=== PATIENT | female | born 1985 ===

== ENCOUNTER 2016-09-17 19:27 | Emergency (ER) | payer BC ==
--- NOTE | 2016-09-24 07:41 | ER ---
ADMIT: 09/17/2016 RM/LOC: ER [facility] MR#: [id number] [id number] [place], [place] [id number] GAIL GUIDRYANTONIASAMMIE Koki [address] [place] [address] Emergency Room Report SEX: F AGE: 31 : 1985 DATE: 09/17/2016 TIME: 1927 hours. Please refer to my T-sheet for complete H and P. HISTORY OF PRESENT ILLNESS: Briefly, the patient is a 31-year-old who comes in with earache. It has been on and off. It was a couple of months ago but it went away. It is kind of back. She feels a little bit dizzy. She has not been sick otherwise. No fevers or chills, but her ear feels full. PHYSICAL EXAMINATION: VITAL SIGNS: Stable. HEENT: Her left ear has a little bit of retraction. Nose is clear. Throat clear. LUNGS: Clear. EMERGENCY DEPARTMENT COURSE: Uneventful. ASSESSMENT: Left otalgia and vertigo. PLAN: I am going to put her on Amoxil 500 t.i.d. for 7 days, meclizine p.r.n., and follow up with Deepa. Return if worse. No work today. Lio Sanchez MD/ eron JOB #: [id number] CC: Lio Sanchez MD, Attending Physician UNKNOWN, Family Physician
== END 2016-09-17 20:20 | disposition home or self-care (01) ==
LOC: ER 19:27
DX: H92.02 Otalgia, left ear (principal); R42 Dizziness and giddiness